=== PATIENT | male | born 1955 | race Caucasian/White ===

== ENCOUNTER 2019-04-16 14:41 | Inpatient (IN) | payer OTHER ==
[~2019-04-16] VITALS: Ht 172.7 cm; Wt 118.6 kg
[2019-04-16 15:05] VITALS: BP 209/74
[2019-04-16 15:16] LABS: BASO # 0.1 10*3/uL (0.0-0.1); BASO % 0.5 % (0.0-1.0); EOS # 0.1 10*3/uL (0.0-0.4); EOS % 1.1 % (1.0-4.0); HEMATOCRIT 46.4 % (42.0-52.0); HEMOGLOBIN 15.3 g/dl (14.0-18.0); LYMPH # 3.2 10*3/uL (1.3-4.4); LYMPH % 31.3 % (27.0-41.0); MEAN CELL VOLUME 93.2 fl (80.0-94.0); MEAN CORPUSCULAR HGB 30.7 pg (27.0-31.0); MEAN PLATELET VOLUME 9.5 fl (9.6-12.3); MONO # 0.8 10*3/uL (0.1-1.0); MONO % 7.5 % (3.0-9.0); NEUT % 59.3 % (47.0-73.0); PLATELET COUNT AUTOMATED 257 10*3/uL (130-400); RED BLOOD COUNT 4.98 10*6/uL (4.50-5.90); RED CELL DISTRI WIDTH 13.6 % (0-14.5); WHITE BLOOD COUNT 10.1 10*3/uL (4.8-10.8)
[2019-04-16 15:27] LABS: ACT PARTIAL THROMBO TIME 33.3 SECONDS (20.0-32.1)
[2019-04-16 15:31] LABS: ALBUMIN 3.8 gm/dl (3.1-4.5); ALKALINE PHOSPHATASE 112 U/L (45-117); BUN 14 mg/dl (7-24); CHLORIDE 105 mmol/L (98-107); POTASSIUM 3.6 mmol/L (3.5-5.1); SGOT/AST 16 IU/L (3-35); SGPT/ALT 26 U/L (12-78); SODIUM 141 mmol/L (136-145); TOTAL PROTEIN 7.5 gm/dL (6.4-8.2)
[2019-04-16 15:33] LABS: TROPONIN I < 0.015 ng/ml (<0.045)
[2019-04-16 16:27] VITALS: BP 167/70
[2019-04-16 18:11] VITALS: BP 178/51
[2019-04-16 18:55] VITALS: BP 136/66
[2019-04-16 19:00] VITALS: BP 136/66
[2019-04-16] MEDS ORDERED: NEURONTIN300 MG PO (20:52)
[2019-04-16] MEDS ORDERED: OMEPRAZOLE MAGN20 MG PO (20:53)
[2019-04-16] MEDS ORDERED: PROVENTIL HFA6.7 GM INH (20:55)
[2019-04-16] MEDS ORDERED: SYMB160 INH (20:56)
[2019-04-16] MEDS ORDERED: LIPITOR80 MG PO (20:58)
[2019-04-16] MEDS ORDERED: METOPROLOL25 MG PO (20:59)
[2019-04-16] MEDS ORDERED: IBUPROFEN600 MG PO (21:00)
[2019-04-16] MEDS ORDERED: METHOCARBAMOL500 M1 PO (21:01)
[2019-04-16 22:50] VITALS: BP 192/88
[2019-04-17] VITALS: BP 158/63
[2019-04-17 06:28] LABS: ACT PARTIAL THROMBO TIME 31.2 SECONDS (20.0-32.1); INTERNATIONAL NORM RATIO 0.9 (2.0-3.5)
[2019-04-17 06:34] LABS: HEMATOCRIT 49.6 % (42.0-52.0); HEMOGLOBIN 16.2 g/dl (14.0-18.0); MEAN CELL VOLUME 91.7 fl (80.0-94.0); MEAN CORPUSCULAR HGB 29.9 pg (27.0-31.0); MEAN CORPUSCULAR HGB CONC 32.7 g/dl (33.0-37.0); MEAN PLATELET VOLUME 9.8 fl (9.6-12.3); PLATELET COUNT AUTOMATED 286 10*3/uL (130-400); RED BLOOD COUNT 5.41 10*6/uL (4.50-5.90); RED CELL DISTRI WIDTH 13.5 % (0-14.5); WHITE BLOOD COUNT 17.8 10*3/uL (4.8-10.8)
[2019-04-17 06:39] LABS: ALBUMIN 3.4 gm/dl (3.1-4.5); ALKALINE PHOSPHATASE 112 U/L (45-117); BUN 15 mg/dl (7-24); CHLORIDE 107 mmol/L (98-107); CHOLESTEROL 180 mg/dL (<200); CREATININE 0.92 mg/dL (0.70-1.30); FREE T4 0.97 ng/dl (0.76-1.46); HDL CHOLESTEROL 47 mg/dl (40-60); LDL CHOLESTEROL 117 mg/dL (9-159); POTASSIUM 3.9 mmol/L (3.5-5.1); SGOT/AST 16 IU/L (3-35); SGPT/ALT 27 U/L (12-78); SODIUM 141 mmol/L (136-145); TOTAL PROTEIN 7.6 gm/dL (6.4-8.2); TRIGLYCERIDES 79 mg/dl (<150); VLDL CHOLESTEROL 16 mg/dL (6-40)
[2019-04-17 06:43] LABS: PLATELET SUFFICIENCY NORMAL (NORMAL); POLYCHROMASIA SLIGHT; TOTAL CELLS COUNTED 100 #CELLS
[2019-04-17 06:44] LABS: PHOSPHOROUS 2.4 mg/dL (2.5-4.9); THYROID STIM HORMONE (HS) 0.922 uIU/ml (0.358-4.75)
[2019-04-17 07:06] LABS: VITAMIN D, 25-HYDROXY 12.6 ng/mL (30-100)
[2019-04-17 08:00] VITALS: BP 180/68
[2019-04-17 09:54] VITALS: BP 160/74
[2019-04-17 12:00] VITALS: BP 158/66
[2019-04-17 16:00] VITALS: BP 133/66
[2019-04-17 20:00] VITALS: BP 168/52
[2019-04-18] VITALS: BP 149/86
[2019-04-18 05:58] LABS: HEMOGLOBIN 14.3 g/dl (14.0-18.0); MEAN CELL VOLUME 91.9 fl (80.0-94.0); MEAN CORPUSCULAR HGB 29.9 pg (27.0-31.0); MEAN CORPUSCULAR HGB CONC 32.5 g/dl (33.0-37.0); PLATELET COUNT AUTOMATED 263 10*3/uL (130-400); RED BLOOD COUNT 4.79 10*6/uL (4.50-5.90); WHITE BLOOD COUNT 24.5 10*3/uL (4.8-10.8)
[2019-04-18 06:23] LABS: CHLORIDE 111 mmol/L (98-107); CREATININE 1.02 mg/dL (0.70-1.30); POTASSIUM 4.3 mmol/L (3.5-5.1); SODIUM 143 mmol/L (136-145)
[2019-04-18 06:24] LABS: BUN 26 mg/dl (7-24)
[2019-04-18 06:28] LABS: PLATELET SUFFICIENCY NORMAL (NORMAL); TOTAL CELLS COUNTED 100 #CELLS
[2019-04-18 08:01] VITALS: BP 152/68
[2019-04-18 12:00] VITALS: BP 156/69
[2019-04-18 16:00] VITALS: BP 178/73
[2019-04-18 17:11] VITALS: BP 160/58
[2019-04-18 20:00] VITALS: BP 186/81
[2019-04-19] VITALS (10 sets, daily range): BP systolic 142–206; BP diastolic 68–92
[2019-04-19 06:50] LABS: BASO % 0.1 % (0.0-1.0); HEMATOCRIT 45.1 % (42.0-52.0); HEMOGLOBIN 14.3 g/dl (14.0-18.0); LYMPH # 1.8 10*3/uL (1.3-4.4); LYMPH % 8.7 % (27.0-41.0); MEAN CELL VOLUME 93.2 fl (80.0-94.0); MEAN CORPUSCULAR HGB 29.5 pg (27.0-31.0); MEAN CORPUSCULAR HGB CONC 31.7 g/dl (33.0-37.0); MEAN PLATELET VOLUME 9.8 fl (9.6-12.3); MONO # 1.1 10*3/uL (0.1-1.0); MONO % 5.2 % (3.0-9.0); NEUT # 17.4 10*3/uL (2.3-7.9); PLATELET COUNT AUTOMATED 256 10*3/uL (130-400); RED BLOOD COUNT 4.84 10*6/uL (4.50-5.90); RED CELL DISTRI WIDTH 14.2 % (0-14.5); WHITE BLOOD COUNT 20.5 10*3/uL (4.8-10.8)
[2019-04-19 06:58] LABS: BUN 27 mg/dl (7-24); CHLORIDE 110 mmol/L (98-107); CREATININE 0.99 mg/dL (0.70-1.30); POTASSIUM 4.5 mmol/L (3.5-5.1); SODIUM 145 mmol/L (136-145)
[2019-04-20] VITALS: BP 154/60
[2019-04-20 07:04] LABS: BASO % 0.3 % (0.0-1.0); EOS % 0.3 % (1.0-4.0); HEMATOCRIT 44.8 % (42.0-52.0); HEMOGLOBIN 14.5 g/dl (14.0-18.0); LYMPH # 3.9 10*3/uL (1.3-4.4); MEAN CELL VOLUME 92.9 fl (80.0-94.0); MEAN CORPUSCULAR HGB 30.1 pg (27.0-31.0); MEAN CORPUSCULAR HGB CONC 32.4 g/dl (33.0-37.0); MONO % 7.5 % (3.0-9.0); NEUT # 7.6 10*3/uL (2.3-7.9); NEUT % 59.9 % (47.0-73.0); PLATELET COUNT AUTOMATED 239 10*3/uL (130-400); RED BLOOD COUNT 4.82 10*6/uL (4.50-5.90); RED CELL DISTRI WIDTH 14.2 % (0-14.5); WHITE BLOOD COUNT 12.6 10*3/uL (4.8-10.8)
[2019-04-20 07:14] LABS: BUN 27 mg/dl (7-24); CHLORIDE 109 mmol/L (98-107); CREATININE 0.79 mg/dL (0.70-1.30)
[2019-04-20 07:25] LABS: SODIUM 143 mmol/L (136-145)
[2019-04-20 07:26] LABS: POTASSIUM 3.4 mmol/L (3.5-5.1)
[2019-04-20 08:00] VITALS: BP 136/74
[2019-04-20] MEDS ORDERED: MUCINEX ER600 MG PO (10:43)
[2019-04-20] MEDS ORDERED: VITAMIN D3125 MC1 PO (10:43)
[2019-04-20] MEDS ORDERED: AMLODIPINE BESY10 MG PO (10:43)
[2019-04-20] MEDS ORDERED: Zestril,Prinivi40 MG PO (10:43)
[2019-04-20] MEDS ORDERED: LOPRESSOR25 MG PO (10:43)
[2019-04-20] MEDS ORDERED: GOOD SENSE ASP325 MG PO (10:43)
[2019-04-20] MEDS ORDERED: PREDNISONE10 MG PO (10:43)
[2019-04-20] MEDS ORDERED: ZITHROMAX TRI-500 M1 PO (10:43)
== END 2019-04-20 12:43 | disposition home or self-care (01) | DRG 190 ==
LOC: ED 14:41 → EDHOLD 18:14 → 4E 18:14
PROVIDERS: Emergency Medicine; Family Medicine; Internal Medicine; ADMIT Emergency Medicine
DX: J44.1 Chronic obstructive pulmonary disease with (acute) exacerbation (principal); J18.9 Pneumonia, unspecified organism; E87.2 Acidosis; I11.0 Hypertensive heart disease with heart failure; J44.0 Chronic obstructive pulmonary disease with (acute) lower respiratory infection; I50.811 Acute right heart failure; I16.0 Hypertensive urgency; E83.41 Hypermagnesemia; R73.9 Hyperglycemia, unspecified; F17.210 Nicotine dependence, cigarettes, uncomplicated; E78.5 Hyperlipidemia, unspecified; G62.9 Polyneuropathy, unspecified; K21.9 Gastro-esophageal reflux disease without esophagitis; G54.2 Cervical root disorders, not elsewhere classified; E87.8 Other disorders of electrolyte and fluid balance, not elsewhere classified; E66.9 Obesity, unspecified; B95.61 Methicillin susceptible Staphylococcus aureus infection as the cause of diseases classified elsewhere; J40 Bronchitis, not specified as acute or chronic; G47.33 Obstructive sleep apnea (adult) (pediatric); Z68.39 Body mass index [BMI] 39.0-39.9, adult; Z89.022 Acquired absence of left finger(s); Z79.899 Other long term (current) drug therapy; Z98.1 Arthrodesis status; Z71.6 Tobacco abuse counseling